=== PATIENT | female | born 1985 | race Hispanic/Latino ===

== ENCOUNTER 2019-09-22 04:25 | Inpatient (IN) | payer OTHER, SELFPAY ==
--- NOTE | 2019-09-21 10:38 | PREOPHP ---
Date of Admission: 09/22/2019 History Of Present Illness: 33-year-old female, 2, para 1, previous , for a repeat . Infection, blood loss, anesthetic complications, injury to bladder, bowel, ureter, postop erative complications, clots in legs, and pneumonia were discussed. Patient knows fully well this do es not constitute all the possible problems that could occur during the following surgery and knows w ith each surgery the risk of complications is greater. She has a posterior placenta with no signs of abruption mentioned on the last ultrasound she had within the last 2 days. Rh positive. Immune to Rubella and negative beta strep screen. Family history is basically noncontributory concerning this . Allergies: SHE HAS NO ALLERGIES. Medicines Prior To Admission: Only vitamins. Social History: Does not smoke. Physical Examination: HEENT: Pupils equal, round, reactive to light and accommodation. Conjunctivae well perfused. No or al, lingual, or buccal lesions. Chest and Lungs: Clear. Heart: Without murmurs, thrills, heaves, or rubs. Breasts: Without masses on previous visits. Extremities: Clear. PELVIC: Baby is term vertex, low in the pelvis. Cervix is fingertip to possibly 1.5 cm. Assessment And Plan: We will proceed with section on Wednesday when patient will be 39 weeks. Full discussion with the patient and the . KEZIA/DADA Voice ID: [id number]
[2019-09-21 16:20] LABS: Absolute Lymphocytes (CBC) 1.5 K/uL (0.7-4.9); Basophils % 0.3 % (0-1.3); Hematocrit 40.3 % (36.0-45.0); Lymphocytes % 21.8 % (15.3-44.8); MPV 8.9 fL (7.6-11.3); RBC Red Blood Cell Count 4.55 M/uL (3.86-4.86)
[2019-09-21 16:41] LABS: Urine Appearance CLEAR; Urine Bilirubin NEGATIVE (NEG); Urine Blood NEGATIVE (NEG); Urine Color YELLOW; Urine Glucose NEGATIVE (NEG); Urine Protein NEGATIVE (NEG); Urine Specific Gravity <=1.005 (1.005-1.030); Urine Urobilinogen 0.2 mg/dL (0.2-1.0); Urine pH 6.5 (5.0-7.0)
[2019-09-21 16:42] LABS: Protime INR 0.87
[2019-09-21 17:11] LABS: Urine Bacteria <20 /HPF (<20); Urine Culture Reflex Order NOT NEEDED; Urine RBC <5 /HPF (NONE SEEN)
[2019-09-21 20:47] LABS: RPR (Rapid Plasma Reagin) NON-REACT (NON-REACT)
[~2019-09-22 04:25] MED LIST: CEFAZOLIN 2 GM in NA CHLORIDE 0.9% 100 ML IVPB SCH; Ringers Lactate 1,000 ML IV SCH
[2019-09-22] MEDS ORDERED: Ringers Lactate 1,000 ML IV PRN (04:34)
[2019-09-22] MEDS ORDERED: METHYLERGONOVINE 0.2MG/ML AMP IM PRN (04:34)
[2019-09-22] MEDS ORDERED: PROMETHAZINE 25 MG/ML VIAL IM PRN (04:34)
[2019-09-22] MEDS ORDERED: DIPHENHYDRAMINE 25 MG TAB/CAP PO PRN ×2 (04:34→08:25)
[2019-09-22] MEDS ORDERED: MAGNES/ALUMIN/SIMET 30ML UCUP PO PRN (04:34)
[2019-09-22] MEDS ORDERED: ZOLPIDEM TARTRATE 5 MG TABLET PO PRN (04:34)
[2019-09-22] MEDS ORDERED: CARBOPROST TROME 250 MCG/ML IM PRN (04:34)
[2019-09-22] MEDS ORDERED: NA CIT/CITRIC AC 30 ML ORAL UDC PO ONE (04:37)
[2019-09-22] MEDS ORDERED: FAMOTIDINE 20 MG/2 ML VIAL IV ONE (04:39)
[2019-09-22 04:49] VITALS: BMI 29.9
[2019-09-22] MEDS ORDERED: Ringers Lactate 1,000 ML IV SCH (05:00)
[2019-09-22] MEDS ORDERED: METOCLOPRAMIDE 10 MG/2mL INJ IV SCH (05:00)
[2019-09-22] MEDS ORDERED: OXYTOCIN/LR 20 UNIT/1,000 ML BAG IV SCH ×2 (05:00→09:00)
[2019-09-22] MEDS ORDERED: CEFAZOLIN/SWI 2gm 2 GM/20 ML SYR IVP SCH (07:00)
[2019-09-22] MEDS ORDERED: EPHEDRINE SULF 50 MG/ML VIAL ONE (07:11)
[2019-09-22] MEDS ORDERED: OXYTOCIN 10 UNIT/ML ML IV ONE ×2 (07:12→07:53)
[2019-09-22] MEDS ORDERED: MORPHINE SULFATE/PF 1 MG/ML (10 ML AMP) ONE (07:12)
[2019-09-22] MEDS ORDERED: NS 0.9% VIAL 10 ML ONE (07:13)
[2019-09-22] MEDS ORDERED: ONDANSETRON 4 MG/2 ML VIAL ONE ×2 (07:13→08:53)
[2019-09-22] MEDS ORDERED: LIDOCAINE 2% MPF 5 ML VIAL ONE ×2 (07:14→08:53)
[2019-09-22] MEDS ORDERED: INFLUENZA VACCINE (for 3y+) 0.5 ML DOSE IMVAC ONE (08:00)
[2019-09-22] MEDS ORDERED: BISACODYL 10 MG RECTAL SUPP RECT PRN (08:25)
[2019-09-22] MEDS ORDERED: ACETAMINOPHEN 500 MG TAB PO PRN ×2 (08:25)
[2019-09-22] MEDS ORDERED: KETOROLAC 30 MG/ML INJ IM PRN (08:25)
[2019-09-22] MEDS ORDERED: ONDANSETRON 4 MG (ODT) TAB PO PRN (08:25)
[2019-09-22] MEDS ORDERED: KETOROLAC 30 MG/ML INJ IV PRN (08:25)
[2019-09-22] MEDS ORDERED: CEFAZOLIN 1GM (PREMIX IV) 50 ML IV ONE (08:25)
[2019-09-22] MEDS ORDERED: ONDANSETRON 4 MG/2 ML VIAL IV PRN (08:25)
[2019-09-22] MEDS ORDERED: IBUPROFEN 200 MG TAB PO PRN (08:25)
[2019-09-22] MEDS ORDERED: BUPIVACAINE 0.75% (PF) 2 ML SP ONE (08:43)
[2019-09-22] MEDS ORDERED: PROPOFOL 200 MG/20 ML VIAL IV ONE (08:51)
[2019-09-22] MEDS ORDERED: MIDAZOLAM HCL 2 MG/2 ML INJ ONE (08:52)
[2019-09-22] MEDS ORDERED: FENTANYL CITR 100 MCG/2 ML ONE (08:52)
[2019-09-22] MEDS ORDERED: D5LR 1,000 ML with OXYTOCIN 20 UNIT IV SCH ×2 (09:00)
[2019-09-22] MEDS ORDERED: Ringers Lactate 1,000 ML IV ONE (13:51)
[2019-09-22] MEDS ORDERED: CEFAZOLIN/SWI 1gm 1 GM/10 ML SYR IV SCH (16:00)
--- NOTE | 2019-09-22 20:08 | OP ---
Surgeon: Darek Crook MD [facility] Para Professional: Dr. Ramon. Anesthesiologist: Estela Caceres -- Wilfred Bowen. A 33-year-old female, 2, para 1, for repeat section. Infection, blood loss, anesthe tic complications, injury to bladder, bowel, ureter, postoperative complications, clots in legs, pneu monia discussed. Patient knows fully well, this does not constitute all the possible problems that c ould occur during or following surgery. Anesthesia: Spinal block anesthesia. Description Of Procedure: After adequate prepping and draping, time-out was performed. At this time , a low transverse lower abdominal incision was made. The incision was carried to the fascia. The f ascia was incised and incision carried transversely bilaterally. Anterior fascial plane was develope d with both blunt and sharp dissection. The underlying rectus muscle was . Peritoneum ente red bluntly and retraction applied. Bladder flap developed. Low transverse uterine incision created . An estimated 7-pound female was delivered through the incision without difficulties, Apgars 9 and 9. Cord blood specimen was obtained. Placenta was removed manually. Uterus cleared of clot and blo od and exteriorized. Cervical os dilated with ring clamp. Uterus closed with a running locked stitc h of 1 chromic followed by a single [id number] stitch in the right angle for complete hemostasis . Estimated blood loss 800 to 900 mL. Gutters clear of clot and blood. Uterus was replaced in the peritoneal cavity. Further inspection showed no further bleeding along the suture line. Rectus musc les were reapproximated using 0 Vicryl 3 interrupted sutures. The fascia was closed using 1 Vicryl 1 from either angle to the midline. Subcutaneous tissue was brought together with 2-0 plain and then 4-0 Monocryl was used for subcuticular stitch. At the patient's request. Ancef 2 g had been given f or prophylaxis. The patient tolerated all procedures well. Transferred back to her room in good con dition. Final Diagnoses: Term intrauterine . Repeat section. Spinal block anesthesia. KEZIA/DADA Voice ID: [id number] Report ID: [id number]
[2019-09-23] MEDS ORDERED: MAGNESIUM HYDROXIDE 8% 30 ML PO PRN (08:25)
--- NOTE | 2019-09-23 13:01 | PN ---
Ambulating well. Output is good. We will discontinue Oseguera and IV. H and H with minimal change. N o complaints reported. All goes well, send her home tomorrow morning. KEZIA/DADA Voice ID: [id number] Report ID: [id number]
[2019-09-23] MEDS ORDERED: Ringers Lactate 1,000 ML IV ONE (14:38)
[2019-09-23] MEDS: Oxycodone HCl/Acetaminophen 1 TAB TAB PO PRN (22:52)
[2019-09-24] MEDS ORDERED: Tdap (Diph,Pertuss(Acell),Tet Vac) 0.5 ML SYR IMVAC ONE (08:00)
[2019-09-24] MEDS: Oxycodone HCl/Acetaminophen 1 TAB TAB PO PRN (09:30)
[2019-09-24 10:17] VITALS: BP 110/59; TEMP 97.7
--- NOTE | 2019-09-25 05:00 | DS ---
Date of Discharge: 09/24/2019 A 33-year-old female for repeat section, was delivered of a 7 pounds estimated weig ht female, Apgars 9 and 9. Spinal block anesthesia. Blood loss 900 mL. Ancef for prophylaxis pre a nd postop. Has done quite well. Afebrile. Ambulating, voiding. Lochia is normal. Will be dismiss ed this morning to return to my office next week for incision inspection. Report any temper ature elevation of 100 degrees or greater, severe pain, heavy bleeding, or any other type of abnormal ities. Dismissed with tramadol for analgesia. She has been offered Tdap and flu shots during the pr egnancy. She has no post spinal block problems. Final Diagnoses: Term intrauterine . Repeat section. Spinal block anesthesia. I mmunizations offered. KEZIA/DADA Voice ID: [id number] Report ID: [id number]
[2019-09-26 20:35] LABS: HBsAG Nonreactive (Nonreactive)
== END 2019-09-24 10:35 | disposition home or self-care (01) | DRG 788 ==
LOC: 2ND-WC 04:25
PROVIDERS: ADMIT Specialist; ATTEND Specialist
PROC: 10D00Z1 Extraction of Products of Conception, Low, Open Approach (ICD-10-PCS; principal; 2019-09-22 07:41)
DX: O34.211 Maternal care for low transverse scar from previous cesarean delivery (principal); Z3A.39 39 weeks gestation of pregnancy; Z37.0 Single live birth; Z23 Encounter for immunization
CPT/HCPCS: 36415; 81001; 85014; 85025; 85610; 85730; 86592; 86850; 86900; 86901; 87340; 88307; 90471; 90715; J0690; J2210; J2250; J2405; J2590; J2704; J2765; J3010; J7120